=== PATIENT | female | born 1965 | race Caucasian/White ===

== ENCOUNTER → 2018-05-01 10:25 | Outpatient (CLI) | payer OTHER, SELFPAY ==
--- NOTE | 2018-05-01 | DI.MG.S_ITS ---
BILATERAL DIGITAL SCREENING MAMMOGRAM 3D/2D WITH CAD: 05/01/2018 CLINICAL: Routine screening. Comparison is made to exams dated: 04/26/2017 mammogram, 04/20/2016 mammogram - [facility], and 11/19/2010 mammogram - [facility]. The tissue of both breasts is extremely dense, which lowers the sensitivity of mammography. Current study was also evaluated with a Computer Aided Detection (CAD) system. There is an asymmetry in the left breast posterior depth superior region seen on the mediolateral oblique view only. No other significant masses, calcifications, or other findings are seen in either breast. IMPRESSION: INCOMPLETE: NEEDS ADDITIONAL IMAGING EVALUATION The asymmetry in the left breast is indeterminate. Additional views with possible ultrasound are recommended. This exam was interpreted at Station ID: [id number]. NOTE: For mammograms, a report in lay terms will be sent to the patient. Approximately 15% of breast malignancies will not be visualized mammographically. In the management of a palpable breast mass, a negative mammogram must not discourage biopsy of a clinically suspicious lesion. Electronically Signed By: Hal day/teresa:05/01/2018 11:55:26 letter sent: Additional Imaging Needed ACR BI-RADS Category 0: Incomplete 3340F
== END ==
PROVIDERS: Family Provider Physician Assistant Medical; PCP Physician Assistant Medical; Visit Provider Physician Assistant Medical
DX: Z12.31 Encounter for screening mammogram for malignant neoplasm of breast (principal)
CPT/HCPCS: 77063; 77067

== ENCOUNTER → 2018-05-07 08:23 | Outpatient (CLI) | payer OTHER, SELFPAY ==
--- NOTE | 2018-05-07 | DI.US.S_ITS ---
ULTRASOUND OF LEFT BREAST: 05/07/2018 CLINICAL: Follow up from addtional views. Comparison is made to exams dated: 05/07/2018 mammogram, 05/01/2018 mammogram, and 04/26/2017 mammogram - [facility]. Real-time ultrasound of the left breast was performed on the area of interest. IMPRESSION: NEGATIVE There is no sonographic evidence of malignancy. There is no abnormality seen in the left breast to correspond with the mammography finding in the upper outer quadrant. A 1 year screening mammogram is recommended. This exam was interpreted at Station ID: [id number]. Electronically Signed By: Yuval cunningham/teresa:05/07/2018 09:36:24 letter sent: Normal Exam Ultrasound BI-RADS: 1 Negative
--- NOTE | 2018-05-07 | DI.MG.S_ITS ---
UNILATERAL LEFT DIGITAL DIAGNOSTIC MAMMOGRAM 3D/2D WITH ADDITIONAL VIEWS: 05/07/2018 CLINICAL: Additional evaluation requested from prior study. Comparison is made to exams dated: 04/26/2017 mammogram, 05/01/2018 mammogram, and 04/20/2016 mammogram - [facility]. The tissue of the left breast is extremely dense, which lowers the sensitivity of mammography. There is an irregular equal density asymmetry with an indistinct margin in the left breast posterior depth superior region seen on the mediolateral oblique view only. This is less prominent. No other significant masses or calcifications are seen in the breast. IMPRESSION: INCOMPLETE: NEEDS ADDITIONAL IMAGING EVALUATION The irregular equal density asymmetry in the left breast is indeterminate. An ultrasound is recommended. This exam was interpreted at Station ID: [id number]. NOTE: For mammograms, a report in lay terms will be sent to the patient. Approximately 15% of breast malignancies will not be visualized mammographically. In the management of a palpable breast mass, a negative mammogram must not discourage biopsy of a clinically suspicious lesion. Electronically Signed By: Yuval cunningham/teresa:05/07/2018 09:35:57 letter sent: Need Ultrasound ACR BI-RADS Category 0: Incomplete 3340F
== END ==
PROVIDERS: Family Provider Physician Assistant Medical; PCP Physician Assistant Medical; Visit Provider Physician Assistant Medical
DX: R92.8 Other abnormal and inconclusive findings on diagnostic imaging of breast (principal)
CPT/HCPCS: 76642; 77065; G0279

== ENCOUNTER → 2018-10-10 09:04 | Outpatient (CLI) | payer OTHER, SELFPAY ==
[2018-10-10 10:01] LABS: Add Manual Diff / Slide Review NO; Basophils Percent Auto 0.5 % (0-2); Eosinophils Percent Auto 3.6 % (2-4); Hematocrit 37.1 % (36-46); Hemoglobin 12.4 g/dL (12.0-16.0); Lymphocytes Percent Auto 42.2 % (25-40); Mean Corpuscular HGB Conc 33.3 % (30-36); Mean Corpuscular Hemoglobin 29.5 PG (26-34); Mean Corpuscular Volume 88.7 fL (80-100); Monocytes Percent Auto 7.7 % (3-14); Neutrophils Absolute Auto 1700 /uL (1500-7000); Platelet Count 237 X10^3/uL (150-400); Red Blood Cell Count 4.19 X10^6/uL (4.0-5.2); Red Cell Distribution Width 12.9 % (11.6-14.8); White Blood Cell Count 3.7 X10^3/uL (4.5-11.0)
[2018-10-10 10:17] LABS: Alanine Aminotransferase 28 IU/L (9-52); Albumin 4.2 g/dL (3.5-5.0); Albumin Globulin Ratio 1.6 (1.0-2.8); Alkaline Phosphatase 54 U/L (38-126); Aspartate Aminotransferase 26 IU/L (14-36); BUN Creatinine Ratio 16.7 (6-22); Bilirubin Total 0.3 mg/dL (0.2-1.3); Blood Urea Nitrogen 15 mg/dL (7-17); Calcium 9.3 mg/dL (8.4-10.2); Carbon Dioxide 28 mmol/L (22-32); Chloride 103 mmol/L (98-107); Cholesterol 183 mg/dL (140-199); Estimated Glomerular Filt Rate > 60.0 mL/min (>60); Globulin 2.7 g/dL (1.7-4.1); Glucose 102 mg/dL (70-100); HDL Cholesterol 91 mg/dL (40-60); HEMOLYSIS < 15 (0-50); LDL Cholesterol Calculated 81 mg/dL (<100); Sodium 142 mmol/L (137-145); Total Protein 6.9 g/dL (6.3-8.2); Triglycerides 53 mg/dL (35-150)
[2018-10-10 10:46] LABS: Thyroid Stimulating Hormone 1.92 uIU/mL (0.47-4.68)
== END ==
PROVIDERS: Family Provider Physician Assistant Medical; PCP Physician Assistant Medical; Visit Provider Nurse Practitioner
DX: Z00.00 Encounter for general adult medical examination without abnormal findings (principal)
CPT/HCPCS: 36415; 80053; 80061; 84443; 85025

== ENCOUNTER → 2019-06-03 11:22 | Outpatient (CLI) | payer OTHER, SELFPAY ==
--- NOTE | 2019-06-03 | DI.MG.S_ITS ---
BILATERAL DIGITAL SCREENING MAMMOGRAM 3D/2D WITH CAD: 06/03/2019 CLINICAL: Routine screening. Comparison is made to exams dated: 05/01/2018 mammogram, 04/26/2017 mammogram, and 04/20/2016 mammogram - [facility]. The tissue of both breasts is extremely dense, which lowers the sensitivity of mammography. Current study was also evaluated with a Computer Aided Detection (CAD) system. There are possible new grouped fine calcifications in the right breast middle depth inferior region seen on the mediolateral oblique view only. No other significant masses, calcifications, or other findings are seen in either breast. IMPRESSION: INCOMPLETE: NEEDS ADDITIONAL IMAGING EVALUATION The possible new grouped fine calcifications in the right breast are indeterminate. Mediolateral and spot magnification views are recommended. This exam was interpreted at Station ID: [id number]. NOTE: For mammograms, a report in lay terms will be sent to the patient. Approximately 15% of breast malignancies will not be visualized mammographically. In the management of a palpable breast mass, a negative mammogram must not discourage biopsy of a clinically suspicious lesion. Electronically Signed By: Mendel Hernandez M.D. aty/:06/04/2019 08:54:16 letter sent: Additional Imaging Needed ACR BI-RADS Category 0: Incomplete 3340F
== END ==
PROVIDERS: PCP Physician Assistant Medical; Visit Provider Physician Assistant Medical
DX: Z12.31 Encounter for screening mammogram for malignant neoplasm of breast (principal)
CPT/HCPCS: 77063; 77067

== ENCOUNTER → 2019-06-12 14:55 | Outpatient (CLI) | payer OTHER, SELFPAY ==
--- NOTE | 2019-06-12 | DI.MG.S_ITS ---
UNILATERAL RIGHT DIGITAL DIAGNOSTIC MAMMOGRAM 3D/2D WITH ADDITIONAL VIEWS: 06/12/2019 CLINICAL: Additional evaluation requested from prior study. Comparison is made to exams dated: 06/03/2019 mammogram, 05/07/2018 mammogram, and 05/01/2018 mammogram - [facility]. The tissue of right breast is extremely dense, which lowers the sensitivity of mammography. The grouped fine calcifications in the right breast middle depth inferior region seen on the mediolateral oblique view only are less prominent than on screening view. No other significant masses or calcifications are seen in the breast. There has been no significant interval change. IMPRESSION: PROBABLY BENIGN The fine calcifications in the right breast are probably benign. A follow-up right mammogram in 6 months is recommended to demonstrate stability. This exam was interpreted at Station ID: [id number]. NOTE: For mammograms, a report in lay terms will be sent to the patient. Approximately 15% of breast malignancies will not be visualized mammographically. In the management of a palpable breast mass, a negative mammogram must not discourage biopsy of a clinically suspicious lesion. Electronically Signed By: Ignacia huffman/:06/12/2019 15:37:39 letter sent: Followup Recommended ACR BI-RADS Category 3: Probably benign 3343F
== END ==
PROVIDERS: Family Provider Internal Medicine; PCP Internal Medicine; Visit Provider Physician Assistant Medical
DX: R92.8 Other abnormal and inconclusive findings on diagnostic imaging of breast (principal); R92.1 Mammographic calcification found on diagnostic imaging of breast
CPT/HCPCS: 77065; G0279

== ENCOUNTER → 2019-12-13 08:42 | Outpatient (CLI) | payer OTHER, SELFPAY ==
--- NOTE | 2019-12-13 | DI.MG.S_ITS ---
UNILATERAL RIGHT DIGITAL DIAGNOSTIC MAMMOGRAM 3D/2D: 12/13/2019 CLINICAL: Patient returns for a 6 month follow up of the right breast. Comparison is made to exams dated: 06/12/2019 mammogram, 06/03/2019 mammogram, and 05/01/2018 mammogram - [facility]. The tissue of right breast is extremely dense, which lowers the sensitivity of mammography. Redemonstration of the grouped fine punctate calcifications in the right breast middle depth inferior region seen on the mediolateral oblique view only. These are not significantly changed. No other significant masses or calcifications are seen in the breast. IMPRESSION: PROBABLY BENIGN Stable appearance of grouped fine punctate calcifications in the inferior right breast are probably benign. A follow-up mammogram in 6 months is recommended to demonstrate continued stability. This exam was interpreted at Station ID: [id number]. NOTE: For mammograms, a report in lay terms will be sent to the patient. Approximately 15% of breast malignancies will not be visualized mammographically. In the management of a palpable breast mass, a negative mammogram must not discourage biopsy of a clinically suspicious lesion. Electronically Signed By: Mendel Hernandez M.D. at/:12/13/2019 09:06:59 letter sent: Followup Recommended ACR BI-RADS Category 3: Probably benign 3343F
== END ==
PROVIDERS: Family Provider Internal Medicine; PCP Internal Medicine; Referring Provider Internal Medicine; Visit Provider Internal Medicine
DX: R92.8 Other abnormal and inconclusive findings on diagnostic imaging of breast (principal); R92.1 Mammographic calcification found on diagnostic imaging of breast
CPT/HCPCS: 77065; G0279

== ENCOUNTER → 2020-06-04 08:36 | Outpatient (CLI) | payer OTHER, SELFPAY ==
--- NOTE | 2020-06-04 | DI.MG.S_ITS ---
BILATERAL DIGITAL DIAGNOSTIC MAMMOGRAM 3D/2D SHORT-TERM FOLLOW-UP: 06/04/2020 CLINICAL: Patient returns for a 12 month follow up of the right breast, due for bilateral exam. Comparison is made to exams dated: 12/13/2019 mammogram, 06/12/2019 mammogram, 06/03/2019 mammogram, and 04/26/2017 mammogram - [facility]. The tissue of both breasts is extremely dense, which lowers the sensitivity of mammography. There are possible stable grouped fine punctate calcifications in the right breast middle depth inferior region seen on the mediolateral oblique view only. No other significant masses, calcifications, or other findings are seen in either breast. IMPRESSION: PROBABLY BENIGN The possible stable grouped fine punctate calcifications in the right breast are probably benign. A follow-up mammogram in 12 months is recommended. This exam was interpreted at Station ID: [id number]. NOTE: For mammograms, a report in lay terms will be sent to the patient. Approximately 15% of breast malignancies will not be visualized mammographically. In the management of a palpable breast mass, a negative mammogram must not discourage biopsy of a clinically suspicious lesion. SUMMARY: The patient will be due for her bilateral mammogram at this time. Electronically Signed By: Ignacia huffman/:06/04/2020 09:18:17 letter sent: Followup Recommended ACR BI-RADS Category 3: Probably benign 3343F
== END ==
PROVIDERS: Family Provider Internal Medicine; PCP Physician Assistant Medical; Referring Provider Physician Assistant Medical; Visit Provider Physician Assistant Medical
DX: R92.8 Other abnormal and inconclusive findings on diagnostic imaging of breast (principal); R92.1 Mammographic calcification found on diagnostic imaging of breast
CPT/HCPCS: 77066; G0279

== ENCOUNTER → 2021-02-19 15:46 | Outpatient (CLI) | payer OTHER, SELFPAY ==
--- NOTE | 2021-02-19 | DI.RAD.S_ITS ---
PROCEDURE: XR LUMBAR SPINE 2-3V INDICATIONS: LOW BACK PAIN TECHNIQUE: 3 views of the lumbar spine were acquired. COMPARISON: [facility], , L-SPINE 2-3 VIEWS, 10/22/2009, 12:20. FINDINGS: Bones: No acute fracture identified. Severe multilevel spondylosis and facet arthropathy. Grade 1 retrolisthesis of L3 on L4. Severe narrowing of the L2-L3, L3-L4 and L4-L5 disc spaces. Levoscoliosis noted. Severe right hip joint degeneration. Left hip arthroplasty partially visualized Soft tissues: Overlying bowel gas pattern is normal. No suspicious soft tissue calcifications. IMPRESSION: Multilevel interval progression of lumbar spondylosis and diffuse facet arthropathy. Levoscoliosis has also progressed since 10/22/09 Dictated by: Denton Bender M.D. on 02/19/2021 at 16:47 Approved by: Denton Bender M.D. on 02/19/2021 at 16:49
== END ==
PROVIDERS: Family Provider Internal Medicine; PCP Physician Assistant Medical; Referring Provider Chiropractor; Visit Provider Chiropractor
DX: M54.5 Low back pain (principal); M47.816 Spondylosis without myelopathy or radiculopathy, lumbar region; M43.16 Spondylolisthesis, lumbar region; M16.11 Unilateral primary osteoarthritis, right hip; Z96.642 Presence of left artificial hip joint
CPT/HCPCS: 72100

== ENCOUNTER → 2021-03-04 16:23 | Outpatient (CLI) | payer OTHER, SELFPAY ==
--- NOTE | 2021-03-04 16:27 | DI.RAD.S_ITS ---
PROCEDURE: XR HIP W PEL IF DONE RT 2V INDICATIONS: right hip pain TECHNIQUE: AP pelvis with lateral view(s) of the right hip(s). COMPARISON: [facility], , PELVIS 1 OR 2 VIEWS, 09/07/2009, 12:40. FINDINGS: Bones: No acute fracture. Spondylosis and facet arthropathy. Left hip arthroplasty in expected alignment. Severe right hip joint degeneration. Soft tissues: The visualized bowel gas pattern is normal. No suspicious soft tissue calcifications. IMPRESSION: Severe right hip joint degeneration, progressed since 09/07/09. Dictated by: Denton Bender M.D. on 03/05/2021 at 12:15 Approved by: Denton Bender M.D. on 03/05/2021 at 12:16
== END ==
PROVIDERS: Family Provider Internal Medicine; PCP Physician Assistant Medical; Referring Provider Chiropractor; Visit Provider Chiropractor
DX: M25.551 Pain in right hip (principal); M16.11 Unilateral primary osteoarthritis, right hip
CPT/HCPCS: 73502

== ENCOUNTER → 2021-03-26 07:12 | Outpatient (CLI) | payer OTHER, SELFPAY ==
[2021-03-26 07:47] LABS: Add Manual Diff / Slide Review NO; Basophils Absolute Auto 0 /uL (0-100); Basophils Percent Auto 0.7 % (0-2); Eosinophils Absolute Auto 100 /uL (0-450); Eosinophils Percent Auto 4.8 % (2-4); Hemoglobin 12.5 g/dL (12.0-16.0); Lymphocytes Absolute Auto 1400 /uL (1100-4500); Lymphocytes Percent Auto 44.6 % (25-40); Mean Corpuscular HGB Conc 33.7 % (30-36); Mean Corpuscular Hemoglobin 29.6 PG (26-34); Mean Corpuscular Volume 87.8 fL (80-100); Monocytes Absolute Auto 200 /uL (0-900); Monocytes Percent Auto 7.2 % (3-14); Neutrophils Absolute Auto 1300 /uL (1500-7000); Neutrophils Percent Auto 42.7 % (50-75); Platelet Count 232 X10^3/uL (150-400); Red Blood Cell Count 4.21 X10^6/uL (4.0-5.2); Red Cell Distribution Width 11.8 % (11.6-14.8); White Blood Cell Count 3.1 X10^3/uL (4.5-11.0)
[2021-03-26 08:06] LABS: Alanine Aminotransferase 17 IU/L (<35); Albumin 4.3 g/dL (3.5-5.0); Albumin Globulin Ratio 1.5 (1.0-2.8); Alkaline Phosphatase 55 U/L (38-126); Aspartate Aminotransferase 27 IU/L (14-36); Bilirubin Total 0.5 mg/dL (0.2-1.3); Blood Urea Nitrogen 15 mg/dL (7-17); Calcium 9.9 mg/dL (8.4-10.2); Carbon Dioxide 28 mmol/L (22-32); Chloride 104 mmol/L (98-107); Cholesterol 217 mg/dL (140-199); Estimated Glomerular Filt Rate > 60.0 mL/min (>60); Globulin 2.9 g/dL (1.7-4.1); Glucose 101 mg/dL (70-100); HDL Cholesterol 98 mg/dL (40-60); HEMOLYSIS < 15 (0-50); LDL Cholesterol Calculated 107 mg/dL (<100); Potassium 4.2 mmol/L (3.4-5.1); Sodium 138 mmol/L (137-145); Total Protein 7.2 g/dL (6.3-8.2); Triglycerides 59 mg/dL (35-150)
[2021-03-26 09:52] LABS: TSH w/ Reflex to FT4 2.16 uIU/mL (0.47-4.68)
== END ==
PROVIDERS: Family Provider Internal Medicine; PCP Physician Assistant Medical; Referring Provider Physician Assistant Medical; Visit Provider Physician Assistant Medical
DX: Z00.00 Encounter for general adult medical examination without abnormal findings (principal); M12.849 Other specific arthropathies, not elsewhere classified, unspecified hand
CPT/HCPCS: 36415; 80053; 80061; 84443; 85025

== ENCOUNTER → 2021-05-27 13:13 | Outpatient (CLI) | payer OTHER, SELFPAY ==
--- NOTE | 2021-05-27 | DI.MG.S_ITS ---
BILATERAL DIGITAL DIAGNOSTIC MAMMOGRAM 3D/2D: 05/27/2021 CLINICAL: Short term follow up of the right breast, due for bilateral imaging. Comparison is made to exams dated: 12/13/2019 mammogram, 06/04/2020 mammogram, and 06/12/2019 mammogram - [facility]. The tissue of both breasts is extremely dense, which lowers the sensitivity of mammography. The fine punctate calcifications in the right breast middle depth inferior region previously followed have become even less prominent. No suspicious findings. No other significant masses, calcifications, or other findings are seen in either breast. IMPRESSION: BENIGN Calcifications faintly seen in the right breast have become less prominent, and are benign. Return to annual mammogram screening schedule is recommended. Findings and recommendations were conveyed to the patient at time of exam. This exam was interpreted at Station ID: [id number]. NOTE: For mammograms, a report in lay terms will be sent to the patient. Approximately 15% of breast malignancies will not be visualized mammographically. In the management of a palpable breast mass, a negative mammogram must not discourage biopsy of a clinically suspicious lesion. Electronically Signed By: Divine chavez/:05/27/2021 14:04:54 letter sent: Normal Exam ACR BI-RADS Category 2: Benign Finding(s) 3342F
== END ==
PROVIDERS: Family Provider Internal Medicine; PCP Physician Assistant Medical; Referring Provider Physician Assistant Medical; Visit Provider Physician Assistant Medical
DX: R92.8 Other abnormal and inconclusive findings on diagnostic imaging of breast (principal); R92.1 Mammographic calcification found on diagnostic imaging of breast
CPT/HCPCS: 77066; G0279

== ENCOUNTER → 2021-08-01 10:57 | Outpatient (CLI) | payer OTHER, SELFPAY ==
[2021-08-01 11:37] LABS: COVID19 -Nasal RAPID Negative (Negative)
== END ==
PROVIDERS: Family Provider Internal Medicine; PCP Physician Assistant Medical; Visit Provider Physician Assistant
DX: Z20.822 Contact with and (suspected) exposure to COVID-19 (principal); J02.9 Acute pharyngitis, unspecified; R51.9 Headache, unspecified
CPT/HCPCS: 87070; 87635

== ENCOUNTER → 2022-01-31 07:46 | Outpatient (CLI) | payer OTHER, SELFPAY ==
[2022-01-31 09:05] LABS: Appearance Urine UA CLEAR; Bilirubin Urine UA NEGATIVE (NEGATIVE); Color Urine UA YELLOW; Glucose Urine UA NEGATIVE (Negative); Ketones Urine UA NEGATIVE (NEGATIVE); Leukocyte Esterase Urine UA NEGATIVE (NEGATIVE); Nitrite Urine UA NEGATIVE (Negative); Occult Blood Urine UA NEGATIVE (Negative); Protein Urine UA NEGATIVE (Negative); Specific Gravity Urine UA <=1.005 (1.000-1.035); Urobilinogen Urine UA 0.2 E.U./dL (0.2)
[2022-01-31 09:14] LABS: Bacteria Urine None Seen; Culture Indicated Urine Cult Not Indicated; RBC Urine None Seen (0-5/HPF); WBC Urine None Seen (0-5/HPF)
[2022-01-31 09:19] LABS: Add Manual Diff / Slide Review NO; Basophils Absolute Auto 0 /uL (0-100); Basophils Percent Auto 0.6 % (0-2); Eosinophils Absolute Auto 100 /uL (0-450); Eosinophils Percent Auto 3.7 % (2-4); Hemoglobin 12.8 g/dL (12.0-16.0); Lymphocytes Absolute Auto 1600 /uL (1100-4500); Lymphocytes Percent Auto 43.6 % (25-40); Mean Corpuscular HGB Conc 33.6 % (30-36); Mean Corpuscular Volume 86.3 fL (80-100); Monocytes Absolute Auto 200 /uL (0-900); Monocytes Percent Auto 6.2 % (3-14); Neutrophils Absolute Auto 1700 /uL (1500-7000); Neutrophils Percent Auto 45.9 % (50-75); Platelet Count 248 X10^3/uL (150-400); Red Cell Distribution Width 12.2 % (11.6-14.8); White Blood Cell Count 3.8 X10^3/uL (4.5-11.0)
[2022-01-31 09:38] LABS: Alanine Aminotransferase 20 IU/L (<35); Albumin 4.7 g/dL (3.5-5.0); Albumin Globulin Ratio 1.6 (1.0-2.8); Alkaline Phosphatase 56 U/L (38-126); Aspartate Aminotransferase 28 IU/L (14-36); BUN Creatinine Ratio 20.7 (6-22); Bilirubin Total 0.4 mg/dL (0.2-1.3); Blood Urea Nitrogen 18 mg/dL (7-17); Calcium 9.5 mg/dL (8.4-10.2); Carbon Dioxide 29 mmol/L (22-32); Chloride 103 mmol/L (98-107); Estimated Glomerular Filt Rate > 60 mL/min (>60); Globulin 2.9 g/dL (1.7-4.1); Glucose 94 mg/dL (70-100); HEMOLYSIS < 15 (0-50); Sodium 139 mmol/L (137-145); Total Protein 7.6 g/dL (6.3-8.2)
[2022-02-01 18:28] LABS: Tissue Transglutaminase IgA <2 U/mL (0-3)
== END ==
PROVIDERS: Family Provider Internal Medicine; PCP Physician Assistant Medical; Referring Provider Nurse Practitioner Family; Visit Provider Nurse Practitioner Family
DX: R19.7 Diarrhea, unspecified (principal)
CPT/HCPCS: 36415; 80053; 81001; 83516; 85025

== ENCOUNTER → 2022-05-30 10:32 | Outpatient (CLI) | payer OTHER, SELFPAY ==
--- NOTE | 2022-05-30 | DI.MG.S_ITS ---
BILATERAL DIGITAL SCREENING MAMMOGRAM 3D/2D WITH CAD: 05/30/2022 CLINICAL: Routine screening. Comparison is made to exams dated: 05/27/2021 mammogram, 06/04/2020 mammogram, 06/03/2019 mammogram, 05/01/2018 mammogram, and 04/26/2017 mammogram - [facility]. The tissue of both breasts is extremely dense, which lowers the sensitivity of mammography. Current study was also evaluated with a Computer Aided Detection (CAD) system. No significant masses, calcifications, or other findings are seen in either breast. There has been no significant interval change. IMPRESSION: NEGATIVE There is no mammographic evidence of malignancy. A 1 year screening mammogram is recommended. Based on the Tyrer Cuzick model (a risk assessment model) the patient's lifetime risk is 14.4% and her 10 year risk is 5.1%. According to the ACR, ACS, and NCCN guidelines, an annual breast MRI exam along with mammogram is recommended if the patient's lifetime risk is 20% or greater. This exam was interpreted at Station ID: [id number]. NOTE: For mammograms, a report in lay terms will be sent to the patient. Approximately 15% of breast malignancies will not be visualized mammographically. In the management of a palpable breast mass, a negative mammogram must not discourage biopsy of a clinically suspicious lesion. Electronically Signed By: Greg solis/teresa:05/30/2022 12:13:31 letter sent: Normal Exam ACR BI-RADS Category 1: Negative 3341F
== END ==
PROVIDERS: Family Provider Internal Medicine; PCP Physician Assistant Medical; Referring Provider Physician Assistant Medical; Visit Provider Physician Assistant Medical
DX: Z12.31 Encounter for screening mammogram for malignant neoplasm of breast (principal)
CPT/HCPCS: 77063; 77067

== ENCOUNTER → 2022-12-07 08:24 | Outpatient (CLI) | payer OTHER, SELFPAY ==
[2022-12-07 09:16] LABS: Add Manual Diff / Slide Review NO; Basophils Absolute Auto 0 /uL (0-100); Basophils Percent Auto 0.9 % (0-2); Eosinophils Absolute Auto 100 /uL (0-450); Eosinophils Percent Auto 4.1 % (2-4); Hematocrit 37.2 % (36-46); Hemoglobin 12.3 g/dL (12.0-16.0); Lymphocytes Absolute Auto 1500 /uL (1100-4500); Lymphocytes Percent Auto 42.5 % (25-40); Mean Corpuscular HGB Conc 33.1 % (30-36); Mean Corpuscular Hemoglobin 28.4 PG (26-34); Mean Corpuscular Volume 85.9 fL (80-100); Monocytes Absolute Auto 200 /uL (0-900); Monocytes Percent Auto 6.7 % (3-14); Neutrophils Absolute Auto 1600 /uL (1500-7000); Neutrophils Percent Auto 45.8 % (50-75); Platelet Count 240 X10^3/uL (150-400); Red Blood Cell Count 4.33 X10^6/uL (4.0-5.2); Red Cell Distribution Width 12.4 % (11.6-14.8); White Blood Cell Count 3.5 X10^3/uL (4.5-11.0)
[2022-12-07 09:48] LABS: Erythrocyte Sedimentation Rate 9 MM/HR (0-20)
[2022-12-07 09:49] LABS: BUN Creatinine Ratio 21.6 (6-22); Blood Urea Nitrogen 16 mg/dL (7-17); C-Reactive Protein Quant < 0.5 mg/dL (<1.0); Calcium 9.5 mg/dL (8.4-10.2); Carbon Dioxide 29 mmol/L (22-32); Chloride 99 mmol/L (98-107); Estimated Glomerular Filt Rate > 60 mL/min (>60); Glucose 91 mg/dL (70-100); HEMOLYSIS < 15 (0-50); Potassium 4.4 mmol/L (3.4-5.1); Sodium 136 mmol/L (137-145)
[2022-12-07 09:56] LABS: Vitamin D 25 Hydroxy (D3) 89.8 ng/mL (30.0-100.0)
[2022-12-07 10:12] LABS: TSH w/ Reflex to FT4 1.76 uIU/mL (0.47-4.68)
[2022-12-07 10:15] LABS: Ferritin 30 ng/mL (11-264)
[2022-12-07 10:30] LABS: Vitamin B12 532 pg/mL (239-931)
== END ==
PROVIDERS: Family Provider Internal Medicine; PCP Family Medicine; Referring Provider Family Medicine; Visit Provider Family Medicine
DX: M25.50 Pain in unspecified joint (principal); F33.8 Other recurrent depressive disorders; R53.83 Other fatigue
CPT/HCPCS: 36415; 80048; 82306; 82607; 82728; 84443; 85025; 85651; 86140

== ENCOUNTER → 2023-01-09 11:30 | Outpatient (CLI) | payer OTHER, SELFPAY ==
--- NOTE | 2023-01-09 | DI.RAD.S_ITS ---
PROCEDURE: XR HAND RT MIN 3V INDICATIONS: BILATERAL HAND PAIN TECHNIQUE: 3 views of the hand(s) acquired. COMPARISON: None. FINDINGS: Bones: Well demarcated ossification at the base of the 1st metacarpal measuring 6 millimeters. First CMC joint space narrowing without significant osteophytosis. No bony erosion. Soft tissues: No suspicious soft tissue calcifications. IMPRESSION: Well-demarcated ossification at the base of the thumb, may represent accessory ossicle versus remote fracture. No significant degenerative joint disease. No erosions. Dictated by: Lee Saldana M.D. on 01/09/2023 at 13:08 Approved by: Lee Saldana M.D. on 01/09/2023 at 13:09
--- NOTE | 2023-01-09 | DI.RAD.S_ITS ---
PROCEDURE: XR HAND LT MIN 3V INDICATIONS: BILATERAL HAND PAIN TECHNIQUE: 3 views of the hand(s) acquired. COMPARISON: None. FINDINGS: Bones: Moderate joint space narrowing of the 1st CMC, with associated osteophytosis. Mild interphalangeal joint space narrowing without significant osteophytes or bony erosion. Soft tissues: No suspicious soft tissue calcifications. 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 Mild interphalangeal osteoarthritis, without evidence of erosion. Dictated by: Lee Saldana M.D. on 01/09/2023 at 12:53 Approved by: Lee Saldana M.D. on 01/09/2023 at 12:54
[2023-01-09 12:22] LABS: Add Manual Diff / Slide Review NO; Basophils Absolute Auto 0 /uL (0-100); Basophils Percent Auto 0.5 % (0-2); Eosinophils Absolute Auto 200 /uL (0-450); Eosinophils Percent Auto 3.7 % (2-4); Hematocrit 36.6 % (36-46); Hemoglobin 12.4 g/dL (12.0-16.0); Lymphocytes Absolute Auto 1500 /uL (1100-4500); Mean Corpuscular Hemoglobin 29.1 PG (26-34); Mean Corpuscular Volume 85.6 fL (80-100); Monocytes Absolute Auto 300 /uL (0-900); Monocytes Percent Auto 6.3 % (3-14); Neutrophils Absolute Auto 2600 /uL (1500-7000); Neutrophils Percent Auto 56.5 % (50-75); Platelet Count 243 X10^3/uL (150-400); Red Blood Cell Count 4.27 X10^6/uL (4.0-5.2); Red Cell Distribution Width 12.5 % (11.6-14.8); White Blood Cell Count 4.7 X10^3/uL (4.5-11.0)
[2023-01-09 12:51] LABS: Erythrocyte Sedimentation Rate 10 MM/HR (0-20)
[2023-01-10 05:32] LABS: Alanine Aminotransferase 23 IU/L (<35); Albumin 4.1 g/dL (3.5-5.0); Albumin Globulin Ratio 1.5 (1.0-2.8); Alkaline Phosphatase 59 U/L (38-126); Aspartate Aminotransferase 25 IU/L (14-36); BUN Creatinine Ratio 22.1 (6-22); Bilirubin Total 0.2 mg/dL (0.2-1.3); Blood Urea Nitrogen 17 mg/dL (7-17); C-Reactive Protein Quant < 0.5 mg/dL (<1.0); Calcium 9.8 mg/dL (8.4-10.2); Carbon Dioxide 29 mmol/L (22-32); Chloride 101 mmol/L (98-107); Estimated Glomerular Filt Rate > 60 mL/min (>60); Globulin 2.8 g/dL (1.7-4.1); Glucose 94 mg/dL (70-100); HEMOLYSIS < 15 (0-50); Phosphorous 4.7 mg/dL (2.5-4.5); Potassium 4.4 mmol/L (3.4-5.1); Sodium 137 mmol/L (137-145); Total Protein 6.9 g/dL (6.3-8.2)
[2023-01-11 09:18] LABS: Parathyroid Hormone Int 29 pg/mL (15-65)
[2023-01-16 17:00] LABS: HLA B27 Negative (.)
== END ==
PROVIDERS: Family Provider Internal Medicine; PCP Family Medicine; Referring Provider Internal Medicine Rheumatology; Visit Provider Internal Medicine Rheumatology
DX: G89.29 Other chronic pain (principal); M25.541 Pain in joints of right hand; M25.542 Pain in joints of left hand; M54.50 Low back pain, unspecified
CPT/HCPCS: 36415; 73130; 80053; 81374; 83970; 84100; 85025; 85651; 86140

== ENCOUNTER → 2023-05-31 08:31 | Outpatient (CLI) | payer OTHER, SELFPAY ==
--- NOTE | 2023-05-31 | DI.MG.S_ITS ---
BILATERAL DIGITAL SCREENING MAMMOGRAM 3D/2D WITH CAD: 05/31/2023 CLINICAL: Routine screening. Comparison is made to exams dated: 05/30/2022 mammogram, 05/27/2021 mammogram, and 06/04/2020 mammogram - [facility]. Both breasts are extremely dense, which lowers the sensitivity of mammography (category d />75% glandular tissue). Current study was also evaluated with a Computer Aided Detection (CAD) system. No significant masses, calcifications, or other findings are seen in either breast. There has been no significant interval change. IMPRESSION: NEGATIVE There is no mammographic evidence of malignancy. A 1 year screening mammogram is recommended. Based on the Tyrer Cuzick model (a risk assessment model) the patient's lifetime risk is 14.2% and her 10 year risk is 5.3%. According to the ACR, ACS, and NCCN guidelines, an annual breast MRI exam along with mammogram is recommended if the patient's lifetime risk is 20% or greater. This exam was interpreted at Station ID: [id number]. NOTE: For mammograms, a report in lay terms will be sent to the patient. Approximately 15% of breast malignancies will not be visualized mammographically. In the management of a palpable breast mass, a negative mammogram must not discourage biopsy of a clinically suspicious lesion. Electronically Signed By: Divine chavez/teresa:05/31/2023 12:05:50 letter sent: Normal Exam ACR BI-RADS Category 1: Negative 3341F
== END ==
PROVIDERS: Family Provider Internal Medicine; PCP Family Medicine; Referring Provider Family Medicine; Visit Provider Family Medicine
DX: Z12.31 Encounter for screening mammogram for malignant neoplasm of breast (principal)
CPT/HCPCS: 77063; 77067

== ENCOUNTER → 2024-06-12 10:31 | Outpatient (CLI) | payer OTHER, SELFPAY ==
--- NOTE | 2024-06-12 10:31 | DI.MG.S_ITS ---
BILATERAL DIGITAL SCREENING MAMMOGRAM 3D/2D WITH CAD: 06/12/2024 CLINICAL: Routine screening. Comparison is made to exams dated: 05/31/2023 mammogram, 05/30/2022 mammogram, and 05/27/2021 mammogram - [facility]. Both breasts are extremely dense, which lowers the sensitivity of mammography (category d />75% glandular tissue). Current study was also evaluated with a Computer Aided Detection (CAD) system. No significant masses, calcifications, or other findings are seen in either breast. There has been no significant interval change. IMPRESSION: NEGATIVE There is no mammographic evidence of malignancy. A 1 year screening mammogram is recommended. Based on the Tyrer Cuzick model (a risk assessment model) the patient's lifetime risk is 13.9% and her 10 year risk is 5.5%. According to the ACR, ACS, and NCCN guidelines, an annual breast MRI exam along with mammogram is recommended if the patient's lifetime risk is 20% or greater. This exam was interpreted at Station ID: [id number]. NOTE: For mammograms, a report in lay terms will be sent to the patient. Approximately 15% of breast malignancies will not be visualized mammographically. In the management of a palpable breast mass, a negative mammogram must not discourage biopsy of a clinically suspicious lesion. Electronically Signed By: Greg solis/teresa:06/12/2024 14:59:16 letter sent: Normal Exam ACR BI-RADS Category 1: Negative 3341F
== END ==
PROVIDERS: Family Provider Internal Medicine; PCP Family Medicine; Referring Provider Family Medicine; Visit Provider Family Medicine
DX: Z12.31 Encounter for screening mammogram for malignant neoplasm of breast (principal); R92.323 Mammographic fibroglandular density, bilateral breasts
CPT/HCPCS: 77063; 77067

== ENCOUNTER → 2024-12-24 09:20 | Outpatient (CLI) | payer BC, SELFPAY ==
[2024-12-24 09:54] LABS: Hematocrit 37.5 % (36-46); Hemoglobin 12.6 g/dL (12.0-16.0); Mean Corpuscular HGB Conc 33.7 % (30-36); Mean Corpuscular Hemoglobin 29.2 PG (26-34); Mean Corpuscular Volume 86.6 fL (80-100); Platelet Count 254 X10^3/uL (150-400); Red Blood Cell Count 4.32 X10^6/uL (4.0-5.2); Red Cell Distribution Width 12.4 % (11.6-14.8); White Blood Cell Count 3.4 X10^3/uL (4.5-11.0)
[2024-12-24 10:28] LABS: Alanine Aminotransferase 18 IU/L (<35); Albumin 4.4 g/dL (3.5-5.0); Albumin Globulin Ratio 1.9 (1.0-2.8); Alkaline Phosphatase 57 U/L (38-126); Aspartate Aminotransferase 24 IU/L (14-36); BUN Creatinine Ratio 25.6 (6-22); Bilirubin Total 0.6 mg/dL (0.2-1.3); Blood Urea Nitrogen 20 mg/dL (7-17); Calcium 9.5 mg/dL (8.4-10.2); Carbon Dioxide 26 mmol/L (22-32); Chloride 101 mmol/L (98-107); Cholesterol 233 mg/dL (140-199); Estimated Glomerular Filt Rate > 60 mL/min (>60); Globulin 2.3 g/dL (1.7-4.1); Glucose 104 mg/dL (80-110); HDL Cholesterol 102 mg/dL (40-60); HEMOLYSIS < 15 (0-50); LDL Cholesterol Calculated 119 mg/dL (<100); Phosphorous 3.4 mg/dL (2.8-4.1); Potassium 4.3 mmol/L (3.4-5.1); Sodium 135 mmol/L (137-145); Total Protein 6.7 g/dL (6.3-8.2); Triglycerides 59 mg/dL (35-150)
[2024-12-24 10:51] LABS: TSH w/ Reflex to FT4 1.43 uIU/mL (0.47-4.68)
[2024-12-25 03:41] LABS: CRP, High Sensitivity 0.48 mg/L (0.00-3.00)
== END ==
LOC: LAB 09:21
PROVIDERS: Family Provider Internal Medicine; PCP Family Medicine; Referring Provider Family Medicine; Visit Provider Family Medicine
DX: Z00.00 Encounter for general adult medical examination without abnormal findings (principal); E78.5 Hyperlipidemia, unspecified; M54.9 Dorsalgia, unspecified; G89.29 Other chronic pain; M19.90 Unspecified osteoarthritis, unspecified site; M25.50 Pain in unspecified joint; G47.00 Insomnia, unspecified; R74.8 Abnormal levels of other serum enzymes; F41.1 Generalized anxiety disorder; R79.89 Other specified abnormal findings of blood chemistry
CPT/HCPCS: 36415; 80053; 80061; 83704; 84100; 84443; 85027; 86140

== ENCOUNTER → 2025-10-14 16:22 | Outpatient (CLI) | payer BC, SELFPAY ==
[2025-10-14 17:10] LABS: Add Manual Diff / Slide Review NO; Hematocrit 36.4 % (36-46); Hemoglobin 12.4 g/dL (12.0-16.0); Lymphocytes Absolute Auto 2100 /uL (1100-4500); Mean Corpuscular HGB Conc 34.2 % (30-36); Mean Corpuscular Hemoglobin 29.2 PG (26-34); Mean Corpuscular Volume 85.4 fL (80-100); Platelet Count 258 X10^3/uL (150-400)
[2025-10-14 17:42] LABS: Alanine Aminotransferase 15 IU/L (<35); Albumin 4.4 g/dL (3.5-5.0); Albumin Globulin Ratio 1.7 (1.0-2.8); Alkaline Phosphatase 68 U/L (38-126); Blood Urea Nitrogen 17 mg/dL (7-17); Calcium 9.7 mg/dL (8.4-10.2); Carbon Dioxide 28 mmol/L (22-32); Chloride 104 mmol/L (98-107); Estimated Glomerular Filt Rate > 60 mL/min (>60); Globulin 2.6 g/dL (1.7-4.1); Glucose 96 mg/dL (70-99); HEMOLYSIS < 15 (0-50); Potassium 4.5 mmol/L (3.4-5.1); Sodium 137 mmol/L (137-145); Total Protein 7.0 g/dL (6.3-8.2)
[2025-10-15 18:36] LABS: Interpretation Negative (Negative)
== END ==
PROVIDERS: Family Provider Internal Medicine; PCP Family Medicine; Referring Provider Physician Assistant; Visit Provider Physician Assistant
DX: R10.9 Unspecified abdominal pain (principal)
CPT/HCPCS: 36415; 80053; 83013; 85025

== ENCOUNTER 2025-10-15 08:13 | Emergency (ER) | payer BC, SELFPAY ==
--- OUTSIDE RECORDS SUMMARY | 2025-10-15 08:15 | XMS_ITS | Encounter Summary ---
Author Organization [facility] Address [address] [place] [address] Care Team Providers Care Cassandra Consultant Name Role Phone Pcp, None Selected Primary Care Provider Unavail able Encounter Details Date Type Department Care Team (Late st Contact Info) Description 01/17/[address] [facility] Rheumatology [place] [address] [place] [phone] Mary Inman MD [address] [place] [id number] Arthralgia of both hands; Chronic low back pain, unspecified back pain laterality, unspecified whether sciatica present Social History Tobacco Use Types Packs/Day Years Used Date Smoking Tobacco: Never Smokeless Tobacco: Never Comments Unknown Sex and Gender Information Value Date Recorded Sex Assigned at Not on file Legal Sex Female 4:38 PM PDT Gender Identity Not on file Sexual Orientation Not on file documented as of this encounter Plan of Treatment Not on file documented as of this encounter Procedures Procedure Name Priority Date/Time Associated Diagnosis Comments HLA B27 Routine 01/09/2023 Arthralgia of both hands Chronic low back pain, unspecified back pain laterality, unspecified whether sciatica present PTH, INTACT Routine 01/09/2023 Arthralgia of both hands Chronic low back pain, unspecified back pain laterality, unspecified whether sciatica present documented in this encounter Results * HLA B27 (01/09/2023) Blood Venous blood / Unknown Mary Inman MD LAB BLOOD ORDERABLES Final Resul t * PTH, intact (01/09/2023) Blood Venous blood / Unknown Mary Inman MD LAB BLOOD ORDERABLES Final Resul t documented in this encounter Visit Diagnoses Diagnosis Arthralgia of both hands Chronic low back pain, unspecified back pain laterality, unspecified whether sciatica present documented in this encounter Care Teams Cassandra Consultant Relationship Specialty Start Date End Date Pcp, None Selected PCP - General 01/30/25 documented as of this encounter
[2025-10-15 08:27] VITALS: BP 123/69; PULSE 62; RESP 18; TEMP 36.1; O2SAT 98; BMI 26.2
--- NOTE | 2025-10-15 08:34 | ED.ABDPAIN ---
HPI - Abdominal Pain General Chief Complaint: Abdominal Pain Stated Complaint: increasing upper right abdominal pain, 2 weeks Time Seen by Provider: 10/15/25 08:19 Source: patient and family Mode of arrival: Family Vehicle History of Present Illness HPI narrative: The patient is a 60 year old female with a history of dyslipidemia and anxiety who presents with a 2 month history of progressive right upper quadrant abdominal pain. She reports that the pain is consistently worse when she bends over. She denies any association with fatty food intake and reports no acholic stools. She denies chest pain, dyspnea, or diaphoresis. She also denies fevers, chills, nausea, vomiting, or recent trauma. No other acute complaints reported. Related Data Home Medications ?Medication ?Instructions ?Recorded ?Confirmed ascorbic acid (vitamin C) PO 07/11/22 10/14/25 cholecalciferol (vitamin D3) PO 07/11/22 10/14/25 magnesium aspart,citrate,oxide mg PO 12/07/22 10/14/25 loratadine 10 mg tablet (Allergy 10 mg PO DAILY 10/03/23 10/14/25 Relief (loratadine)) C15:0 PO 12/24/24 10/14/25 Previous Rx's ?Medication ?Instructions ?Recorded estradiol 10 mcg vaginal tablet 10 mcg vaginal 2XW #24 tabs 12/24/24 fluocinonide 0.05 % topical cream 1 applic topical BID PRN itching 12/24/24 #30 grams trazodone 50 mg tablet 50 mg PO ONCE PM #90 tabs 03/21/25 citalopram 20 mg tablet 20 mg PO QPM #90 tabs 04/23/25 Allergies Allergy/AdvReac Type Severity Reaction Status Date / Time adhesive tape Allergy Mild Rash Verified 10/15/25 08:26 clobetasol Allergy Mild ITCHING Verified 10/15/25 08:26 oxycodone Allergy ITCHING Verified 10/15/25 09:34 Review of Systems Review of Systems ROS Unobtainable: All systems reviewed & are unremarkable except as noted in HPI and below Patient History Medical History ENDOMETRIAL HYPERPLASIA, UNSPECIFIED Heavy menstrual bleeding (05/04/04) Anemia (05/04/04) Osteoarthritis Cranial somatic dysfunction Somatic dysfunction of cervical region Polyarthralgia Insomnia Spider bite Menorrhagia Surgical History H/O oral surgery Status post total hip resurfacing Status post laparoscopic supracervical hysterectomy (04/04/16) History of third molar tooth extraction History of elective Family History (Updated 07/11/22 @ 17:15 by Rakel Osman CMA) Father Cancer Mother Cancer Grandmother Diabetes mellitus Grandmother Cancer Hyperlipidemia Hypertension Social History (Updated 07/11/22 @ 16:45 by Rakel Osman [facility]) marital status: household members: spouse pets and animals: Yes (dogs) education level: college occupational status: employed [employer]: [employer] leisure activities: other other: biking, hiking, walking, gardening seatbelt use: always helmet use: Yes water heater temp set < 120 deg: Yes working smoke detector in home: Yes fire extinguisher in home: Yes carbon monox detector in home: Yes firearms in home: No do you feel safe at home: Yes Smoking Status: Former smoker Tobacco: How many years used: 3 alcohol intake: current (2 glasses of wine daily ) substance use type: does not use during the past year weight has: decreased > 10 lbs well-balanced diet: daily or most days daily servings fruits/ve or more times/day caffeine: Yes (2-3 cups coffee/day ) eating out: 1-3 times/week Type(s) of exercise: walking, bicycling and weight lifting frequency: daily duration: 45-60 minutes/day additional social history: suspected hearing loss. I think my hearing has become worse in the past 1-2 years Wears glasses Smoking Status: Former smoker tobacco type: cigarettes Exam Narrative Exam Narrative: Vitals:? Afebrile, all other vitals within normal range. Gen:? Well-developed, well-nourished, no acute distress Cards:? Bradycardic, no murmurs, rubs, gallops Pulm:? No increased work of breathing, and expiratory wheezing in upper lobes Abd:? Soft, nondistended, nontender, positive Goodwin's signs, negative McBurney signs, no CVA tenderness. Ext:? No peripheral edema in bilateral lower extremity Neuro:? A&O x4, cranial nerves grossly intact, moving all 4 extremities spontaneously Psych:? Appropriate Initial Vital Signs Initial Vital Signs: Vital Signs Temperature 97.0 F L 10/15/25 08:27 Pulse Rate 62 10/15/25 08:27 Respiratory Rate 18 10/15/25 08:27 Blood Pressure 123/69 10/15/25 08:27 Pulse Oximetry 98 10/15/25 08:27 Oxygen Delivery Method Room Air 10/15/25 08:27 Course Orders Ordered: Discontinued Medications Hydrocodone Bitart/Acetaminophen (Hydrocodone/Acet 5/325 Tablet) 1 tab PO NOW ONE Stop: 10/15/25 09:04 Acetaminophen (Ofirmev) 1,000 mg in 100 mls @ 400 mls/hr IV NOW ONE Stop: 10/15/25 09:50 Last Infusion: 10/15/25 10:08 Dose: Infused Documented By: Admin: 10/15/25 09:46 Dose: 400 mls/hr Documented By: NAIMA Vital Signs Vital signs: Vital Signs - 8 hr 10/15/25 11:41 Pulse Rate 56 L Respiratory Rate 16 Pulse Oximetry 98 Oxygen Delivery Method Room Air MDM - Abdominal Pain Lab Data 10/15/25 09:32 10/15/25 09:32 Labs: Lab Results 10/15/25 Range/Units 09:32 WBC 3.9 L (4.5-11.0) X10^3/uL RBC 4.46 (4.0-5.2) X10^6/uL Hgb 12.8 (12.0-16.0) g/dL Hct 38.3 (36-46) % MCV 85.9 (80-100) fL MCH 28.8 (26-34) PG MCHC 33.5 (30-36) % RDW 12.3 (11.6-14.8) % Plt Count 254 (150-400) X10^3/uL Neut % (Auto) 48.9 L (50-75) % Lymph % (Auto) 39.5 (25-40) % Geary % (Auto) 7.1 (3-14) % Eos % (Auto) 3.8 (2-4) % Baso % (Auto) 0.7 (0-2) % Neut # (Auto) 1900 (5064-3939) /uL Lymph # (Auto) 1500 (4334-9575) /uL Geary # (Auto) 300 (0-900) /uL Eos # (Auto) 100 (0-450) /uL Baso # (Auto) 0 (0-100) /uL Sodium 140 (137-145) mmol/L Potassium 4.2 (3.4-5.1) mmol/L Chloride 105 (98-107) mmol/L Carbon Dioxide 27 (22-32) mmol/L BUN 15 (7-17) mg/dL Creatinine 0.71 (0.52-1.04) mg/dL Estimated GFR > 60 (>60) mL/min BUN/Creatinine Ratio 21.1 (6-22) Glucose 99 (70-99) mg/dL Calcium 9.4 (8.4-10.2) mg/dL Total Bilirubin 0.4 (0.2-1.3) mg/dL AST 23 (14-36) IU/L ALT 15 (<35) IU/L Alkaline Phosphatase 60 (38-126) U/L Total Protein 7.4 (6.3-8.2) g/dL Albumin 4.6 (3.5-5.0) g/dL Globulin 2.8 (1.7-4.1) g/dL Albumin/Globulin Ratio 1.6 (1.0-2.8) Lipase 103 (23-300) U/L Point of care testing: Urine Dip Bedside Urine Glucose Negative Bedside Urine Bilirubin - Negative Bedside Urine Ketone - Negative Urine Specific [place] 1.005 Bedside Urine Occult Blood - Negative Bedside Urine pH 6.5 Bedside Urine Protein - Negative Bedside Urine Urobilinogen - Negative Bedside Urine Nitrite - Negative Bedside Urine Leukocytes - Negative Esterase Imaging Data US - abdomen: Radiologist's Impression: PROCEDURE: US ABDOMEN LIMITED INDICATIONS: RUQ TECHNIQUE: Real-time focused scanning was performed of the abdomen, with image documentation. COMPARISON: None. FINDINGS: Liver appears unremarkable, aside from a few cysts. Gallbladder is nondistended. The wall measures 2-3 mm, within normal limits. Focal tenderness however was seen over the gallbladder. Mildly prominent CBD at 7-8 mm. Unremarkable partially seen pancreas. IMPRESSION: Nondistended gallbladder, however focal tenderness was seen during sonographic examination. No discrete stones identified. A nuclear medicine HIDA scan could further evaluate patency of the cystic duct and gallbladder ejection fraction. Mildly prominent CBD at 7-8 mm. Correlate LFTs. Dictated by: Nicolás Ricketts M.D. on 10/15/2025 at 9:40 Approved by: Nicolás Ricketts M.D. on 10/15/2025 at 9:41 CT scan - abdomen/pelvis: Radiologist's Impression: PROCEDURE: CT ABDOMEN PELVIS W CON INDICATIONS: ruq pain TECHNIQUE: After the administration of intravenous contrast, axial sections acquired from the lung bases to the pubic symphysis. Coronal and sagittal reformats were performed. For radiation dose reduction, the following was used: automated exposure control, adjustment of mA and/or kV according to patient size. COMPARISON: [facility], ABDOMEN LIMITED, 10/15/2025, 9:18. FINDINGS: Image quality: Diagnostic. Lower Chest: Small pericardial effusion. Lung bases are clear. ABDOMEN: Liver: No solid mass. Multiple hepatic cysts. Gallbladder: Gallbladder is contracted. No radiopaque gallstones or wall thickening. Biliary ducts: No biliary dilation. Pancreas: No ductal dilation. Spleen: Size is within normal limits. Adrenal Glands: No adrenal nodules. Kidneys and Ureters: No hydronephrosis. No solid mass. No complex renal cystic lesion which requires follow up. Stomach and Bowel: Small bowel loops are nondilated. Normal appendix. No focal colonic inflammatory changes. Peritoneum: No abnormal intraperitoneal fluid. No free air. Ventral Wall: No significant ventral hernia. Abdominal Nodes: No retroperitoneal or mesenteric adenopathy by size criteria. Vessels: Aorta and inferior vena cava are normal in size. PELVIS: Pelvic Organs: Status post hysterectomy. Bladder: No bladder wall thickening, accounting for underdistention. Pelvic Nodes: No enlarged lymph nodes. Miscellaneous: No inguinal hernias are seen. Bones: No aggressive osseous abnormality. Multilevel degenerative changes in the lumbar spine levoconvex curvature. Bilateral hip arthroplasties. Fluid collection is seen extending superiorly from the right hip, likely a iliopsoas bursal effusion. IMPRESSION: 1. No acute abnormality identified in the abdomen or pelvis to explain the reported pain. 2. Small pericardial effusion. MDM Narrative Medical decision making narrative: Patient is a 60-year-old female who presents with 2 month history of progressively worsening right-sided abdominal pain. EMR Review: Reviewed primary care note dated 10/14/2025 were primary care physician order similar workup. Differential diagnosis: Cholecystitis, choledocholithiasis, cholangitis, hepatitis, appendicitis, pancreatitis, GERD, other abdominal mass, muscle strain versus sprain, other. Labs: CBC without leukocytosis or left shift, hemoglobin normal, platelets normal. CMP normal. LFTs normal. Lipase normal. Images: Incidental finding of iliopsoas bursal effusion on CT abdomen. Right upper quadrant ultrasound with nondistended gallbladder, however focal tenderness was seen during sonographic examination. No discrete stones identified. A nuclear medicine HIDA scan could further evaluate patency of the cystic duct and gallbladder ejection fraction. Mildly prominent CBD at 7-8 mm. Correlate LFTs. EKG: None Consults: None Disposition / ED Course Summary: The patient remained hemodynamically stable throughout her ED stay. Her abdominal exam was benign without peritoneal signs, and her laboratory evaluation?including CBC, CMP, LFTs, and lipase?was reassuring. Imaging revealed no acute intra?abdominal pathology, though RUQ ultrasound did demonstrate focal tenderness despite the absence of gallstones. Given persistent symptoms and the mildly prominent CBD, outpatient HIDA scan was discussed as the next step to evaluate for biliary dyskinesia or early acalculous cholecystitis. She was comfortable with the plan and able to tolerate oral intake. No emergent surgical process identified at this time. Discharge Instructions / Return Precautions: She was advised to monitor for worsening abdominal pain, persistent vomiting, fever, jaundice, dark urine, pale stools, inability to tolerate oral intake, or any new or concerning symptoms. She was instructed to follow up with her primary care provider and/or general surgery for outpatient HIDA scan and further evaluation. She verbalized understanding and was discharged in stable condition. Discharge Plan Departure Patient Disposition: Home Clinical Impression: Abdominal pain, RUQ Activity Restrictions/Additional Instructions: You were seen in the emergency department for right upper quadrant pain. In the ER: -- CT abdomen showed iliopsoas bursal effusion. -- Right upper quadrant ultrasound was not consistent with inflammation of your gallbladder. Please see your primary care physician for outpatient HIDA scan. Return to the ER if you develop any new or worsening symptoms to include increasing abdominal pain, nausea, vomiting, any other concerns. Prescriptions: No Action trazodone 50 mg tablet 50 mg PO ONCE PM Qty: 90 3RF citalopram 20 mg tablet 20 mg PO QPM Qty: 90 1RF magnesium aspart,citrate,oxide 400 mg magnesium capsule PO loratadine [Allergy Relief (loratadine)] 10 mg tablet 10 mg PO DAILY ascorbic acid (vitamin C) PO cholecalciferol (vitamin D3) PO fluocinonide 0.05 % cream 1 applic topical BID PRN (Reason: itching) Qty: 30 1RF C15:0 PO estradiol 10 mcg tablet 10 mcg vaginal 2XW Qty: 24 3RF Referrals: Margareth Calvo DO [Primary Care Provider, Medical] Stand Alone Forms: Patient Portal/API
--- NOTE | 2025-10-15 09:02 | DI.US.S_ITS ---
PROCEDURE: US ABDOMEN LIMITED INDICATIONS: RUQ TECHNIQUE: Real-time focused scanning was performed of the abdomen, with image documentation. COMPARISON: None. FINDINGS: Liver appears unremarkable, aside from a few cysts. Gallbladder is nondistended. The wall measures 2-3 mm, within normal limits. Focal tenderness however was seen over the gallbladder. Mildly prominent CBD at 7-8 mm. Unremarkable partially seen pancreas. IMPRESSION: Nondistended gallbladder, however focal tenderness was seen during sonographic examination. No discrete stones identified. A nuclear medicine HIDA scan could further evaluate patency of the cystic duct and gallbladder ejection fraction. Mildly prominent CBD at 7-8 mm. Correlate LFTs. Dictated by: Nicolás Ricketts M.D. on 10/15/2025 at 9:40 Approved by: Nicolás Ricketts M.D. on 10/15/2025 at 9:41
--- NOTE | 2025-10-15 09:24 | DI.CT.S_ITS ---
PROCEDURE: CT ABDOMEN PELVIS W CON INDICATIONS: ruq pain TECHNIQUE: After the administration of intravenous contrast, axial sections acquired from the lung bases to the pubic symphysis. Coronal and sagittal reformats were performed. For radiation dose reduction, the following was used: automated exposure control, adjustment of mA and/or kV according to patient size. COMPARISON: [facility], , US ABDOMEN LIMITED, 10/15/2025, 9:18. FINDINGS: Image quality: Diagnostic. Lower Chest: Small pericardial effusion. Lung bases are clear. ABDOMEN: Liver: No solid mass. Multiple hepatic cysts. Gallbladder: Gallbladder is contracted. No radiopaque gallstones or wall thickening. Biliary ducts: No biliary dilation. Pancreas: No ductal dilation. Spleen: Size is within normal limits. Adrenal Glands: No adrenal nodules. Kidneys and Ureters: No hydronephrosis. No solid mass. No complex renal cystic lesion which requires follow up. Stomach and Bowel: Small bowel loops are nondilated. Normal appendix. No focal colonic inflammatory changes. Peritoneum: No abnormal intraperitoneal fluid. No free air. Ventral Wall: No significant ventral hernia. Abdominal Nodes: No retroperitoneal or mesenteric adenopathy by size criteria. Vessels: Aorta and inferior vena cava are normal in size. PELVIS: Pelvic Organs: Status post hysterectomy. Bladder: No bladder wall thickening, accounting for underdistention. Pelvic Nodes: No enlarged lymph nodes. Miscellaneous: No inguinal hernias are seen. Bones: No aggressive osseous abnormality. Multilevel degenerative changes in the lumbar spine levoconvex curvature. Bilateral hip arthroplasties. Fluid collection is seen extending superiorly from the right hip, likely a iliopsoas bursal effusion. IMPRESSION: 1. No acute abnormality identified in the abdomen or pelvis to explain the reported pain. 2. Small pericardial effusion. Approved by: Terry Auguste M.D. on 10/15/2025 at 10:26
[2025-10-15 09:44] LABS: Add Manual Diff / Slide Review NO; Hematocrit 38.3 % (36-46); Hemoglobin 12.8 g/dL (12.0-16.0); Lymphocytes Absolute Auto 1500 /uL (1100-4500); Mean Corpuscular HGB Conc 33.5 % (30-36); Mean Corpuscular Hemoglobin 28.8 PG (26-34); Mean Corpuscular Volume 85.9 fL (80-100); Platelet Count 254 X10^3/uL (150-400)
[2025-10-15] MEDS: ACETAMINOPHEN IV 1,000 MG/100 ML VIAL 400 MG IV (09:46)
[2025-10-15 09:57] LABS: Alanine Aminotransferase 15 IU/L (<35); Albumin 4.6 g/dL (3.5-5.0); Albumin Globulin Ratio 1.6 (1.0-2.8); Alkaline Phosphatase 60 U/L (38-126); Blood Urea Nitrogen 15 mg/dL (7-17); Calcium 9.4 mg/dL (8.4-10.2); Carbon Dioxide 27 mmol/L (22-32); Chloride 105 mmol/L (98-107); Estimated Glomerular Filt Rate > 60 mL/min (>60); Globulin 2.8 g/dL (1.7-4.1); Glucose 99 mg/dL (70-99); HEMOLYSIS < 15 (0-50); Lipase 103 U/L (23-300); Potassium 4.2 mmol/L (3.4-5.1); Sodium 140 mmol/L (137-145); Total Protein 7.4 g/dL (6.3-8.2)
[2025-10-15 11:41] VITALS: PULSE 56; RESP 16; O2SAT 98
== END 2025-10-15 11:57 | disposition home or self-care (01) ==
PROVIDERS: Emergency Provider Student in an Organized Health Care Education/Training Program; Family Provider Internal Medicine; PCP Family Medicine
DX: R10.11 Right upper quadrant pain (principal)
CPT/HCPCS: 36415; 74177; 76705; 80053; 81003; 83690; 85025; 96365; 99284; J0131; Q9967